=== PATIENT | male | born 1975 | race Native Hawaiian/Other Pacific Islander ===

== ENCOUNTER 2025-07-01 23:33 | Inpatient (IN) | payer OTHER ==
[2025-07-02 00:03] VITALS: BMI 27.3
[2025-07-02] MEDS ORDERED: BENZOCAINE/MENTHOL (CHLORASEPTIC ) LOZENGE MM PRN (00:56)
[2025-07-02] MEDS ORDERED: guaiFENesin 600 MG TABLET.ER (FP) PO PRN (00:56)
[2025-07-02] MEDS ORDERED: BENZONATATE 200 MG CAPSULE PO PRN (00:56)
[2025-07-02] MEDS ORDERED: MAGNESIUM HYDROX 2400MG/30ML ORAL SUSPENSION 30 ML CUP PO PRN (00:56)
[2025-07-02] MEDS ORDERED: DICYCLOMINE HCL 10 MG CAPSULE PO PRN (00:56)
[2025-07-02] MEDS ORDERED: IBUPROFEN 400 MG TABLET (FP) PO PRN (00:56)
[2025-07-02] MEDS ORDERED: POLYETHYLENE GLYCOL (HEALTHYLAX) 3350 17 GM PACKET PO PRN (00:56)
[2025-07-02] MEDS ORDERED: ONDANSETRON *ODT* 4 MG TABLET SL PRN (00:56)
[2025-07-02] MEDS ORDERED: NALOXONE (NARCAN) HCL 4 MG/0.1 ML SPRAY NS PRN (00:56)
[2025-07-02] MEDS ORDERED: METHOCARBAMOL 500 MG TABLET ONE (01:45)
[2025-07-02] MEDS ORDERED: hydrOXYzine PAMOATE 25 MG CAPSULE (FP) PO ONE (01:45)
[2025-07-02] MEDS: hydrOXYzine PAMOATE 25 MG CAPSULE (FP) PO PRN (01:46)
[2025-07-02] MEDS: METHOCARBAMOL 500 MG TABLET PO PRN (01:46)
[2025-07-02] MEDS: SULFAMETHOXAZOLE/TRIMETHOPRIM 800MG/160MG D.S. TABLET PO SCH (09:28)
[2025-07-02] MEDS: PRENATAL VITAMINS W/ FOLIC ACID TABLET (FP) PO SCH (09:28)
[2025-07-02 14:38] LABS: GLUCOSE,RANDOM 100.0 mg/dL (74-106); TOT PROT 7.4 g/dl (6.4-8.2)
[2025-07-02 14:39] LABS: CO2 27.0 mmol/L (21-32)
[2025-07-02 14:41] LABS: ALK PHOS 170.0 U/L (40-150)
[2025-07-02 14:44] LABS: CREATININE 0.75 mg/dL (0.55-1.3); SGOT/AST 76.0 U/L (5-34); SGPT/ALT 49.0 U/L (0-55)
[2025-07-02] MEDS: LORATADINE 10 MG TABLET PO SCH (15:45)
[2025-07-02] MEDS ORDERED: LIPASE/PROTEASE/AMYLASE 24,000 UNIT CAPSULE PO SCH (17:30)
[2025-07-02] MEDS: LIPASE/PROTEASE/AMYLASE 24,000 UNIT CAPSULE PO SCH (17:34)
[2025-07-02] MEDS: SUCRALFATE 1 GM TABLET (FP) PO SCH (22:17)
[2025-07-02] MEDS: THIAMINE 100 MG TABLET PO SCH (22:17)
[2025-07-02] MEDS: BUDESONIDE/FORMETEROL FUMARATE 80/4.5 mcg INHALER IH SCH (22:17)
[2025-07-02] MEDS: MELATONIN 5 MG TABLETS PO SCH (22:17)
[2025-07-03 09:59] LABS: MCHC 32.3 g/dl (32.3-36.5); MEAN CELL VOLUME 91.7 fl (79.0-92.2); MEAN PLT VOLUME 10.2 fl (9.4-12.4); RDW 16.4 % (12.1-15.9)
[2025-07-03 10:10] LABS: GLUCOSE,RANDOM 138.0 mg/dL (74-106)
[2025-07-03 10:11] LABS: CO2 23.0 mmol/L (21-32); TOT PROT 6.5 g/dl (6.4-8.2)
[2025-07-03] MEDS: amLODIPine BESYLATE 2.5 MG TABLET (FP) PO SCH (10:12)
[2025-07-03] MEDS: PANTOPRAZOLE 40 MG TABLET PO SCH (10:12)
[2025-07-03 10:13] LABS: ALK PHOS 151.0 U/L (40-150)
[2025-07-03] MEDS: ACETAMINOPHEN 325 MG TABLET (FP) PO PRN (10:15)
[2025-07-03 10:16] LABS: CREATININE 0.8 mg/dL (0.55-1.3); SGOT/AST 56.0 U/L (5-34); SGPT/ALT 44.0 U/L (0-55)
[2025-07-03] MEDS: IBUPROFEN 600 MG TABLET (FP) PO PRN (19:59)
[2025-07-03] MEDS: SUVOREXANT 10 MG TABLET PO PRN (21:40)
[2025-07-04] MEDS: NALTREXONE HCL 50 MG TABLET PO SCH (09:45)
[2025-07-04] MEDS: amLODIPine BESYLATE 5 MG TABLET (FP) PO SCH (09:45)
[2025-07-04] MEDS: MAG HYDROX/AL HYDROX/SIMETH 30 ML UNIT-DOSE CUP PO PRN (13:45)
[2025-07-04] MEDS: LOPERAMIDE HCL 2 MG CAPSULE PO PRN (15:20)
[2025-07-04] MEDS: BISMUTH SUBSALICYLATE 524 MG/30 ML PO PRN (22:08)
[2025-07-07 06:58] VITALS: RESP 18
[2025-07-07 08:55] VITALS: BP 129/79; PULSE 97; TEMP 97.5
== END 2025-07-07 09:35 | disposition home or self-care (01) | DRG 775 ==
LOC: YASAS 23:33 → Y6N 07-02 01:58
PROVIDERS: ADMIT Allergy & Immunology; ATTEND Student in an Organized Health Care Education/Training Program
PROC: HZ2ZZZZ Detoxification Services for Substance Abuse Treatment (ICD-10-PCS; principal; 2025-07-02)
DX: F10.230 Alcohol dependence with withdrawal, uncomplicated (principal); F17.210 Nicotine dependence, cigarettes, uncomplicated; F10.282 Alcohol dependence with alcohol-induced sleep disorder; F10.24 Alcohol dependence with alcohol-induced mood disorder; F41.9 Anxiety disorder, unspecified; F32.A Depression, unspecified; I10 Essential (primary) hypertension; K21.9 Gastro-esophageal reflux disease without esophagitis; Z87.19 Personal history of other diseases of the digestive system
CPT/HCPCS: 36415; 80053; 80307; 85027; 86780; 93005; 93010